=== PATIENT | female | born 1990 | race Hispanic/Latino ===

== ENCOUNTER 2018-08-16 23:16 | Emergency (ER) | payer SELFPAY ==
--- NOTE | 2018-08-16 23:50 | ED PDOC ---
HPI: Allergic Reaction Time Seen by Provider: 08/16/18 23:35 Chief Complaint (Nursing): Allergic Reaction Chief Complaint (Provider): allergic reaction History Per: Patient History/Exam Limitations: no limitations Onset/Duration Of Symptoms: Hrs (1.5) Current Symptoms Are (Timing): Better Context: Food Possible Cause: Food (shrimp) Associated Symptoms: Skin Rash, Redness Home/EMS Treatment: Benadryl (50mg tablet) Additional Complaint(s): 27 y/o female brought in by EMS for evaluation of allergic reaction. Patient states she ate shrimp around 22:30 and shortly after developed diffuse body rash, redness. Patient states she took a cold shower and took two Benadryl tablets one hour ago with little improvement, which prompted ED visit. Denies headache, dizziness, difficulty speaking/swallowing, vomiting, chest pain, shortness of breath, palpitations, abdominal pain Past Medical History Reviewed: Historical Data, Nursing Documentation, Vital Signs Vital Signs: Last Vital Signs Temp 97.5 F L 08/16/18 23:17 Pulse 116 H 08/16/18 23:17 Resp 16 08/16/18 23:17 BP 100/73 08/16/18 23:17 Pulse Ox 95 08/16/18 23:17 - Medical History PMH: No Chronic Diseases - Surgical History Surgical History: No Surg Hx - Family History Family History: States: No Known Family Hx - Home Medications Home Medications: Ambulatory Orders Medication Instructions Recorded Cetirizine HCl [Zyrtec] 10 mg PO DAILY #5 capsule 08/17/18 Famotidine [Pepcid] 20 mg PO BID #8 tab 08/17/18 Prednisone 50 mg PO DAILY #4 tablet 08/17/18 - Allergies Allergies/Adverse Reactions: Allergies Allergy/AdvReac Type Severity Reaction Status Date / Time No Known Allergies Allergy Verified 08/16/18 23:17 Review of Systems ROS Statement: Except As Marked, All Systems Reviewed And Found Negative Skin: Positive for: Rash Physical Exam - Reviewed Nursing Documentation Reviewed: Yes Vital Signs Reviewed: Yes - Physical Exam Appears: Positive for: Well, Non-toxic, Uncomfortable Head Exam: Positive for: ATRAUMATIC, NORMAL INSPECTION, NORMOCEPHALIC Skin: Positive for: Rash (diffuse urticarial rash with skin erythema) Eye Exam: Positive for: Normal appearance ENT: Positive for: Normal ENT Inspection Cardiovascular/Chest: Positive for: Regular Rate, Rhythm Respiratory: Positive for: Normal Breath Sounds Gastrointestinal/Abdominal: Positive for: Normal Exam Back: Positive for: Normal Inspection Extremity: Positive for: Normal ROM Neurologic/Psych: Positive for: Alert, Oriented (x3) - ECG O2 Sat by Pulse Oximetry: 95 - Progress ED Course And Treament: -IV pepcid -IV solumedrol On re-eval, rash visibly improving. Patient states itching resolved Patient educated on findings, discharged with rx Prednisone, Pepcid, Zyrtec Advised to avoid shellfish and follow up PMD within 2-3 days Return precautions given Disposition - Clinical Impression Clinical Impression: Allergic reaction - Patient ED Disposition Is Patient to be Admitted: No Counseled Patient/Family Regarding: Diagnosis, Need For Followup, Rx Given - Disposition Disposition: Routine/Home Disposition Time: 01:39 Condition: IMPROVED Prescriptions: Cetirizine HCl [Zyrtec] 10 mg PO DAILY #5 capsule Famotidine [Pepcid] 20 mg PO BID #8 tab Prednisone 50 mg PO DAILY #4 tablet Instructions: Food Allergy Forms: [employer] (Romanian)
[2018-08-17 02:06] VITALS: BP 101/52; PULSE 84; RESP 18; TEMP 98.3; O2SAT 98
== END 2018-08-17 02:10 | disposition home or self-care (01) ==
LOC: MERGE 23:16 → H.ER 23:16
DX: T78.40XA Allergy, unspecified, initial encounter (principal)
CPT/HCPCS: 81025; 96374; 96375; 99283; J2930